=== PATIENT | female | born 1985 | race Caucasian/White ===

== ENCOUNTER 2016-04-15 19:43 | Emergency (ER) | payer SELFPAY ==
[~2016-04-15] VITALS: Ht 162.6 cm; Wt 84.5 kg
[~2016-04-15 19:43] MED LIST: HYDR-3498 PO; IBUP-1542 PO; PREN1TAB49
[2016-04-15 19:47] VITALS: Ht 162.6 cm; Wt 84.5 kg
== END 2016-04-15 23:56 | disposition left against medical advice (07) ==
LOC: FTE 19:43
DX: Z53.21 Procedure and treatment not carried out due to patient leaving prior to being seen by health care provider (principal)

== ENCOUNTER 2018-05-31 06:15 | Emergency (ER) | payer MEDICAID ==
[~2018-05-31] VITALS: Wt 95.3 kg
--- NOTE | 2018-05-31 07:47 | ERD ---
ER Documentation Chief Complaint Chief Complaint bilat breast pain x's 2 weeks HPI 33-year-old female, presents the emergency department, complaining of mild bilateral breast tenderness for 2 weeks. The patient is , LMP: 05/20/18 the patient denies lumps or masses sensation, no trauma, no fevers, no chills. No family history of breast cancer. ROS All systems reviewed and are negative except as per history of present illness. Medications Home Meds Active Scripts Ibuprofen* (Motrin*) 400 Mg Tab, 400 MG PO Q8, #20 TAB Prov:KUMAR FUNEZ MD 05/31/18 Hydrocodone Bit-Acetaminophen* ([place]*) 5-325 Mg Tab, 1 TAB PO Q6 PRN for PAIN, #20 TAB Prov:OLVIN ROTHMAN NP 09/28/15 Ibuprofen* (Motrin*) 600 Mg Tab, 600 MG PO Q6H PRN for PAIN AND OR ELEVATED TEMP, #30 TAB Prov:OLVIN ROTHMAN NP 09/28/15 Reported Medications Vits W-Ca,Fe,Fa(<1MG) () 1 Tab Tablet, 1 07/21/11 Vits W-Ca,Fe,Fa(<1MG) () 1 Tab Tablet 12/27/09 [None] No Conflict Check 06/25/09 Allergies Allergies: Coded Allergies: No Known Drug Allergies (Verified Allergy, Mild, 07/21/11) PMhx/Soc History of Surgery: Yes () Hx Neurological Disorder: Yes (CEREBRAL ANEURYSM) Hx Respiratory Disorders: No Hx Cardiac Disorders: No Hx Miscellaneous Medical Probl: No Hx Alcohol Use: No Hx Substance Use: No Hx Tobacco Use: No Smoking Status: Never smoker FmHx Family History: No diabetes, No coronary disease Physical Exam Vitals Vital Signs Date Temp Pulse Resp B/P (MAP) Pulse Ox O2 O2 Flow FiO2 Time Delivery Rate 05/31/18 97.8 76 18 128/61 98 06:20 (83) Physical Exam Const: No acute distress Head: Atraumatic Eyes: Normal Conjunctiva ENT: Normal External Ears, Nose and Mouth. Neck: Full range of motion. No meningismus. Resp: Clear to auscultation bilaterally. Breast: Normal inspection, symmetrical, no masses, no lymphadenopathy. Cardio: Regular rate and rhythm, no murmurs Abd: Soft, non tender, non distended. Normal bowel sounds Skin: No petechiae or rashes Back: No midline or flank tenderness Ext: No cyanosis, or edema Neur: Awake and alert Psych: Normal Mood and Affect Results 24 hrs Laboratory Tests Test 05/31/18 08:12 POC Beta HCG, Qualitative NEGATIVE Procedures/MDM Vital signs stable. Differential diagnosis considered include hematoma, mastitis, lipoma, cyst, fibroglandular changes of the breast. Low suspicion for malignancy. During the ED course the patient remained stable, no new complaints. Results and clinical impression discussed with the patient who agrees with management. The patient is stable to be treated outpatient and will be discharged home with a Rx for ibuprofen, some side effects of prescribed medications (headache, rash, nausea, vomiting, diarrhea, bleeding, hypertension, interactions with other medications) were reviewed. Follow up with the primary care provider in the next 48h has been recommended. If symptoms persist, worsen or new symptoms develop, then patient should return to the ED immediately. Instructions explained and given directly by me to the patient with acknowledgment and demonstrated understanding. Disclaimer: Inadvertent spelling and grammatical errors are likely due to EHR/dictation software use and do not reflect on the overall quality of patient care. Also, please note that the electronic time recorded on this note does not necessarily reflect the actual time of the patient encounter. Departure Diagnosis: Primary Impression: Mastalgia in female Condition: Stable Additional Instructions: Muchas adelso por [facility] para nixon servicio. Esperamos que en nixon visita a la mariel de emergencia nixon problema medico haya sido solucionado y que se sienta mucho mejor. Para estar seguros que nixon mejoria sigue en proceso, le pedimos el favor de hacer mauri serg de seguimiento medico con nixon doctor primario en los proximos 2-4 murillo. Lleve con usted estos documentos y las medicinas recetadas. Si inessa sintomas empeoran, NO SE ESPERE, por favor regrese a mariel de emergencia INMEDIATAMENTE. En arlyn que usted no tenga un mdico de atencin primaria: Llame al mdico o clnica comunitaria de referencia que aparece abajo jann las horas de consultorio para hacer mauri serg para que le vean. CLINICAS: [facility] [phone] [facility] [phone] [facility] [phone] [place] [phone] [place] [phone] [facility]. [phone] KUMAR GALLARDO MD May 31, 2018 07:47
[2018-05-31] MEDS ORDERED: IBUP-1561 PO (07:56)
== END 2018-05-31 08:36 | disposition home or self-care (01) ==
LOC: FTE 06:15
DX: N64.4 Mastodynia (principal)
CPT/HCPCS: 81025; Z7502; 99283